=== PATIENT | female | born 1935 | race African-American/Black ===

== ENCOUNTER 2018-10-21 14:07 | Observation (INO) | payer OTHER ==
[~2018-10-21] VITALS: Ht 198.1 cm; Wt 83.9 kg
--- NOTE | ~2018-10-21 | HC ---
[facility] [place] [address] CONSULTATION Name: CHLOÉ GUTIERREZ Room #: 458-[facility] M.REctor#: [id number] Admission: 10/21/18 Attend Phys: Song Wu Discharge: Date of : 39 Report #: [id number] THIS REPORT FOR: //name// CC: Song Hernandez DATE OF SERVICE: 10/22/2018 HISTORY OF PRESENT ILLNESS: This is an 83-year-old female patient who was evaluated by me for dizziness. The history is poorly defined. Initially, she indicated it was coming for 2 weeks, but when further history is taken, it looks like it may be present for the longer duration of the time. It started spontaneously without any trauma. She indicates that sometimes she is worse when she tries to stand up, but whether that is a persistent feature is not clear. REVIEW OF SYSTEMS: Indicate the patient has multiple problems. She indicates she has diabetes and hypertension. She does monitor her blood pressure at home, but she indicates that is done by her daughter and she does not know what her blood pressure is. One time she believes her blood pressure was low. It is not clear if she takes her blood pressure standing up and lying down or just lying down. She does have a history of neuropathy. She complained of some blurred vision; that is difficult to evaluate. 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 She does have some visual difficulty on the right side. REVIEW OF SYSTEMS: She denies any ENT symptoms or any new respiratory, GI, , musculoskeletal, constitutional, dermatological, hematological, psychiatric, throat, allergic symptom associated with present symptomatology. PAST MEDICAL HISTORY: Positive for diabetes and hypertension. FAMILY HISTORY: Negative for early age stroke. SOCIAL HISTORY: She indicates she drinks alcohol once a year. PHYSICAL EXAMINATION: NEUROLOGIC: The patient's examination indicates she is alert. She is responsive. She is able to follow simple and complex command. Her memory and fund of knowledge is poor, but I do not know what her baseline is. 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 Otherwise, it looks unremarkable. Strength, sensation, reflexes and tone look symmetrical. She does not give a good effort all the time. Reflexes are diminished. She is able to walk. There is no meningeal sign. I could not look at the fundus in this patient. GENERAL: She is moderately built individual, who does not have any dysmorphic features of eyes, ears and face. [facility] [address] [place] [address] CONSULTATION Name: CHLOÉ GUTIERREZ Room #: 458-[facility] M..#: [id number] Admission: 10/21/18 Attend Phys: Song Wu Discharge: Date of : 39 Report #: [id number] HEENT: Her vision and hearing looks adequate. NECK: She has no thyroid mass. EXTREMITIES: Her pulses are palpable. She has no cyanosis, jaundice or edema. CARDIAC EXAMINATION: Appears unremarkable. LUNGS: No respiratory difficulty or rhonchi is noticed. VITAL SIGNS: Blood pressure is 158/70, respirations of 20, pulse is 71 and temperature is 97.7. LABORATORY DATA: Labs indicate a white count of 6.6. Her workup was reviewed and she had CT angiography and that appeared mostly unremarkable. She did have a lumbar spine CT, which showed some arthritic changes there. IMPRESSION: So far, there is no neurological etiology which can explain the patient's symptoms. We will check for any postural hypotension. Her CT scan was done in the Emergency Room and that does show significant abnormality. We will check this MRI of the lumbar spine. I will check B12. I will check a sed rate. We will see if we can determine any etiology for the patient's symptoms. She should have a lipid profile and she should be on a statin if there is a need for it and she can be on aspirin, but so far, there is no etiology which can explain the patient's symptoms. RECOMMENDATIONS: 1. MRI of the brain. 2. We will go ahead and do MRI of the lumbar spine. 3. Sed rate. 4. B12 level. 5. Immunofixation electrophoresis because of the patient's possible neuropathy. If everything is normal, then she can follow up with us as an outpatient. Thank you very much for this referral and if you have any questions, please feel free to contact me. By: [id number] Tawanda Figueroa MD /shannan
[~2018-10-21 14:07] MED LIST: ASPIRIN81 M2 PO; AUGMENTIN 875875 MG PO; CIPRO500 MG PO; DIOVAN40 MG PO; FLAGYL500 MG PO; GLUCOPHAGE500 MG PO; HYDROCODONE-AP1 EAC6 PO; KEFLEX500 MG PO; LISINOPRIL10 MG PO; MEDROL DOSPAK21 TAB PO; NEURONTIN 400400 M1 PO; NORCO 5-325 TA1 EACH PO; VOLTAREN GEL 1100 G1 TOP
[2018-10-21 14:08] VITALS: BP 139/70
[2018-10-21 14:42] LABS: ABSOLUTE NEUTROPHILS 3.4 thou/uL (1.4-8.2); HEMOGLOBIN 13.3 gm/dL (12.0-15.0)
[2018-10-21 14:46] LABS: BASOPHILS 0.6 % (0.0-2.0); EOSINOPHILS 2.1 % (0.0-3.0); HEMATOCRIT 38.9 % (37.0-47.0); LYMPHOCYTES 37.8 % (24.0-44.0); MCH 31.1 pg (26.0-34.0); MCHC 34.2 g/dL (28.0-37.0); MCV 90.9 fL (80.0-100.0); PLATELET COUNT 115 thou/uL (150-400); POLYS 52.5 % (36.0-66.0); RBC 4.28 mil/uL (4.20-5.00); RDW 13.5 % (10.5-14.5); WBC 6.6 thou/uL (4.0-11.0)
[2018-10-21 14:51] LABS: ANION GAP 9 mmol/L (7-16); BUN 16 mg/dL (7-18); CALCIUM 9.4 mg/dL (8.5-10.1); CHLORIDE 106 mmol/L (98-107); CO2 28 mmol/L (21-32); GLUCOSE 106 mg/dL (74-106); POTASSIUM 3.6 mmol/L (3.5-5.1); SODIUM 143 mmol/L (136-145)
[2018-10-21 15:00] LABS: ALBUMIN 3.6 g/dL (3.4-5.0); SGOT 22 U/L (15-37); SGPT 23 U/L (30-65); TOTAL BILIRUBIN 0.4 mg/dL (<0.1-1.0); TOTAL PROTEIN 7.3 g/dL (6.4-8.2); TROPONIN-I <0.06 ng/mL (<0.06)
[2018-10-21 16:20] LABS: URINE BILIRUBIN NEGATIVE (Negative); URINE BLOOD NEGATIVE (Negative); URINE CLARITY CLEAR; URINE COLOR YELLOW; URINE GLUCOSE-RANDOM* NEGATIVE (Negative); URINE KETONES NEGATIVE (Negative); URINE LEUKOCYTES-REFLEX NEGATIVE (Negative); URINE NITRITE-REFLEX NEGATIVE (Negative); URINE PROTEIN (DIPSTICK) NEGATIVE (Negative); URINE SPECIFIC GRAVITY 1.025 (1.005-1.035); URINE UROBILINOGEN 0.2 E.U./dl (0.2-1.0)
--- NOTE | 2018-10-21 16:34 | EKG ---
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: cw : 1935 Requested By: Kofi Lo Order Number: [id number] MD: Rowdy Brito Measurements Intervals [place] Rate: 65 P: 56 MO: 148 QRS: 41 QRSD: 82 T: 29 QT: 391 QTc: 407 Interpretive Statements Sinus rhythm Probable left atrial enlargement Low voltage, precordial leads Compared to ECG 10/10/2015 17:23:41 Low QRS voltage now present Electronically Signed On 10-21-2018 16:34:44 ASSOCIATE TEAM PHYSICIAN by Rowdy Brito [email or web address] <ELECTRONICALLY SIGNED> By: Rowdy Brito MD 10/21/18 1634 D: 01/1447 1448 Rowdy Brito MD /[place]
[2018-10-21 19:11] VITALS: BP 159/75
[2018-10-21 19:49] VITALS: BP 159/75
[2018-10-21 20:17] VITALS: BP 150/71
[2018-10-21] MEDS ORDERED: PRAVACHOL40 MG PO (21:15)
[2018-10-21] MEDS ORDERED: DIOVAN160 MG PO (21:16)
[2018-10-21] MEDS ORDERED: VALSARTAN-HCTZ1 EAC1 PO (21:18)
[2018-10-21] MEDS ORDERED: NEURONTIN 300M300 M2 PO (21:20)
[2018-10-22 04:48] VITALS: BP 125/56; BP 142/62; BP 145/66
--- NOTE | 2018-10-22 06:36 | NUR ---
RECEIVED PATIENT VIA CART FROM ER. DIZZINESS UPON STANDING, BUT ABLE TO WALK TO BED, BATHROOM WITH STAND BY ASSIST. ORTHOSTATIC BP DONE THIS MORNING. DID NOT HAVE SIGNIFICANT CHANGE IN BP. C/O CHRONIC RIGHT HIP PAIN, HAS TOPICAL MED AVAILABLE. EV SCHREIBER NP AWARE OF ADMIT.
[2018-10-22 07:08] VITALS: BP 158/70
[2018-10-22] MEDS ORDERED: PREDNISONE 20 M20 MG PO (10:58)
[2018-10-22] MEDS ORDERED: ANTIVERT25 MG PO (10:58)
[2018-10-22 11:05] VITALS: BP 158/70
--- NOTE | 2018-10-22 11:44 | NUR ---
ORDERS RECEIVED FOR EVAL AND TREAT HOWEVER Pt DISCHARGED FROM HOSPITAL PRIOR TO BEING SEEN
[2018-10-22 18:06] LABS: IgA 245 mg/dL (64-422); IgG 1112 mg/dL (700-1600); IgM 52 mg/dL (26-217)
== END 2018-10-22 11:38 | disposition home or self-care (01) ==
LOC: ER 14:07 → EROBS 19:11 → 4W 19:49
PROVIDERS: Physician Assistant; Psychiatry & Neurology Neuromuscular Medicine; ADMIT Hospitalist
DX: H81.09 Meniere's disease, unspecified ear (principal); M48.061 Spinal stenosis, lumbar region without neurogenic claudication; E11.9 Type 2 diabetes mellitus without complications; I10 Essential (primary) hypertension; E04.9 Nontoxic goiter, unspecified; D72.829 Elevated white blood cell count, unspecified; Z85.42 Personal history of malignant neoplasm of other parts of uterus; Z79.899 Other long term (current) drug therapy

== ENCOUNTER → 2020-09-07 | Outpatient (CLI) | payer OTHER ==
[~2020-09-07] MED LIST changes: +ANTIVERT25 MG PO; +DIOVAN160 MG PO; +NEURONTIN 300M300 M2 PO; +PRAVACHOL40 MG PO; +PREDNISONE 20 M20 MG PO; +VALSARTAN-HCTZ1 EAC1 PO
== END ==
LOC: LAB 07:25
PROVIDERS: ATTEND Internal Medicine Gastroenterology
DX: Z01.812 Encounter for preprocedural laboratory examination (principal); Z20.828 Contact with and (suspected) exposure to other viral communicable diseases

== ENCOUNTER 2021-03-19 14:12 | Emergency (ER) | payer MEDICARE ==
[~2021-03-19] VITALS: Ht 167.6 cm; Wt 81.7 kg
[2021-03-19 15:58] LABS: BASOPHILS 0.5 % (0.0-2.0); EOSINOPHILS 2.4 % (0.0-3.0); HEMATOCRIT 32.9 % (37.0-47.0); LYMPHOCYTES 35.7 % (24.0-44.0); MCH 29.3 pg (26.0-34.0); MCHC 33.3 g/dL (28.0-37.0); MCV 88.1 fL (80.0-100.0); MONOCYTES 6.7 % (1.0-8.0); PLATELET COUNT 115 thou/uL (150-400); POLYS 54.7 % (36.0-66.0); RBC 3.74 mil/uL (4.20-5.00); WBC 5.6 thou/uL (4.0-11.0)
[2021-03-19 16:05] LABS: CALCIUM 8.6 mg/dL (8.5-10.1); CREATININE 0.9 mg/dL (0.6-1.0); POTASSIUM 3.9 mmol/L (3.5-5.1)
[2021-03-19 17:07] VITALS: BP 145/69
== END 2021-03-19 17:30 | disposition home or self-care (01) ==
LOC: ER 14:12
PROVIDERS: Nurse Practitioner
DX: L98.9 Disorder of the skin and subcutaneous tissue, unspecified (principal); M25.661 Stiffness of right knee, not elsewhere classified; E11.9 Type 2 diabetes mellitus without complications; I10 Essential (primary) hypertension; Z88.1 Allergy status to other antibiotic agents; Z79.82 Long term (current) use of aspirin; Z79.899 Other long term (current) drug therapy; Z90.711 Acquired absence of uterus with remaining cervical stump; E78.00 Pure hypercholesterolemia, unspecified